=== PATIENT | female | born 1940 | race Caucasian/White ===

== ENCOUNTER → 2017-08-11 | Outpatient (CLI) | payer MEDICARE, BC ==
[~2017-08-11] MED LIST: ASPIRIN E.C. 8181 MG PO; CALCIUM600 M2 PO; FOSAMAX70 MG PO; GLUCOSAMINE & C1 CAP PO; HEALTH CARE AM500 M3 PO; MULTIPLE VITAMI1 CAP PO; ULTRAM100 MG PO; VITAMIN D2400 IU PO
== END ==
LOC: MC.RAD 07-26 10:00
DX: Z12.31 Encounter for screening mammogram for malignant neoplasm of breast (principal)

== ENCOUNTER → 2018-08-23 | Outpatient (CLI) | payer MEDICARE, BC | LOC: MC.RAD 15:52 | DX: Z12.31 Encounter for screening mammogram for malignant neoplasm of breast (principal) ==

== ENCOUNTER → 2019-09-09 | Outpatient (CLI) | payer MEDICARE, BC | LOC: MC.RAD 10:55 | DX: Z12.31 Encounter for screening mammogram for malignant neoplasm of breast (principal) ==

== ENCOUNTER → 2020-01-30 | Outpatient (CLI) | payer MEDICARE, BC | LOC: COL.CARD 11:01 | DX: I10 Essential (primary) hypertension (principal); R00.2 Palpitations ==

== ENCOUNTER → 2020-09-10 | Outpatient (CLI) | payer MEDICARE, BC | LOC: MC.RAD 09:30 | DX: Z12.31 Encounter for screening mammogram for malignant neoplasm of breast (principal) ==

== ENCOUNTER 2021-07-15 14:15 | Outpatient (RCR) | payer MEDICARE, BC | END 2021-07-16 | disposition home or self-care (01) | LOC: WSC | DX: M51.36 Other intervertebral disc degeneration, lumbar region (principal) ==

== ENCOUNTER → 2021-09-14 | Outpatient (CLI) | payer MEDICARE, BC | LOC: MC.RAD 11:04 | DX: Z12.31 Encounter for screening mammogram for malignant neoplasm of breast (principal) ==

== ENCOUNTER → 2022-10-17 | Outpatient (CLI) | payer MEDICARE, BC | LOC: MC.RAD 13:49 | DX: Z12.31 Encounter for screening mammogram for malignant neoplasm of breast (principal) ==

== ENCOUNTER 2024-04-15 14:54 | Outpatient (CLI) | payer MEDICARE, BC ==
[~2024-04-15] VITALS: Ht 149.9 cm; Wt 48.7 kg
[2024-04-15 15:12] VITALS: BP 138/75; PULSE 66; TEMP 98.4
[2024-04-15] MEDS ORDERED: XANAX .25M0.25 MG/TA PO (15:14)
[2024-04-15] MEDS ORDERED: ESTRACE0.1 MG/GM VG (15:14)
[2024-04-15] MEDS ORDERED: PROLIA60 MG/ML SQ (15:15)
[2024-04-15] MEDS ORDERED: Denosumab 60 MG/ML SYRINGE SQ ONE (15:15)
[2024-04-15] MEDS ORDERED: NORVASC2.5 MG PO (15:15)
[2024-04-15] MEDS ORDERED: TENORMIN 2525 MG/TAB PO (15:16)
[2024-04-15] MEDS ORDERED: ULTRAM 50MG TAB50 MG PO (15:16)
[2024-04-15] MEDS ORDERED: CALCIUM 600MG+D1 TAB PO (15:17)
[2024-04-15] MEDS ORDERED: PRESERVISION1 SGL PO (15:18)
--- NOTE | 2024-04-15 15:34 | NUR ---
Pt tolerated prolia without issue. She is escorted out to elevator with steady gait. She is free of complaints at discharge.
== END 2024-04-15 15:37 | disposition home or self-care (01) ==
LOC: EUO 14:54
DX: M81.8 Other osteoporosis without current pathological fracture (principal)
CPT/HCPCS: J0897